=== PATIENT | male | born 1955 | race Caucasian/White ===

== ENCOUNTER 2019-03-25 20:34 | Emergency (ER) | payer OTHER ==
[2019-03-25 20:42] VITALS: BP 197/92; PULSE 78; TEMP 98.1; BMI 26.4
[2019-03-25] MEDS ORDERED: AZITHROMYCIN 250 MG TABLET ONE (21:08)
--- NOTE | 2019-03-25 21:11 | PDOC ---
Documentation entered by Kamala Gandhi SCRIBE, acting as scribe for Goyo Ortega MD. Goyo Ortega MD: This documentation has been prepared by the Oksana almodovar Brenda, SCRIBE, under my direction and personally reviewed by me in its entirety. I confirm that the documentation accurately reflects all work , treatment, procedures, and medical decision making performed by me. History of Present Illness - General Chief Complaint: Respiratory Stated Complaint: PRODUCTIVE COUGH X 1 WEEK,CONGESTION History Source: Patient Exam Limitations: No Limitations - History of Present Illness Initial Comments: 03/25/19 21:03 The patient is a 64 year old male, with a significant PMH of CVA, hypertension, hyperlipidemia who presents to the emergency department with 1 week of cough, congestion and sinus pressure. The patient reports that when the cough first appeared it was productive of yellow phlegm but has since became dry and persistent. Patient also reports tender sinus pressure in the periorbital region and maxillary, accompanied by lethargy. He also endorses a headache across his forehead. He notes taking mucinex, to no relief. The patient denies chest pain, shortness of breath and dizziness. Denies fever, chills, nausea, vomiting, diarrhea and constipation. Denies any other symptoms. . Allergies: NKA Social history: Social alcohol. No reported hx of tobacco use or illicit drug use. 03/25/19 21:07 Assessment and plan: This is a 64-year-old male who comes in complaining of upper respiratory tract symptoms x1 week with initially productive cough now nonproductive cough. Patient also complaining of pain in his maxillary sinuses. On exam patient's lungs were clear however he did have tenderness over his maxillary sinuses bilaterally. Patient started on azithromycin first dose given here for acute sinusitis Prescription sent to patient's pharmacy patient instructed to also get and use a [place] pot Patient discharged home will follow-up with his primary care doctor Past History - Past Medical History Allergies/Adverse Reactions: Allergies Allergy/AdvReac Type Severity Reaction Status Date / Time No Known Allergies Allergy Verified 06/18/15 17:55 Home Medications: Ambulatory Orders Aspirin [ASA -] 81 mg PO DAILY 06/18/15 Lisinopril 10 mg PO DAILY 06/18/15 Metformin HCl [Glucophage] 500 mg PO DAILY 03/25/19 CVA: Yes (2009) HTN: Yes Hypercholesterolemia: Yes - Psycho Social/Smoking Cessation Hx Smoking History: Never smoked Have you smoked in the past 12 months: No Hx Alcohol Use: No Drug/Substance Use Hx: No Substance Use Type: Alcohol Review of Systems - Review of Systems Able to Perform ROS?: Yes Comments:: 03/25/19 21:03 General: No fevers or chills, no weight loss HEENT: No change in vision. No sore throat,. No ear pain CardioVascular: No chest pain or shortness of breath Respiratory: (+)cough (+) Congestion. (+) Sinus pressure. No wheezing. Gastrointestinal: no nausea, vomiting, diarrhea or constipation, No rectal bleeding Genitourinary: No dysuria, hematuria, or frequency Musculoskeletal: No joint or muscle pain or swelling Neurologic: (+) Headache. No vertigo, dizziness or loss of consciousness Psychiatric: nor depression Skin: No rashes or easy bruising Endocrine: no increased thirst or abnormal weight change Allergic: no skin or latex allergy All other systems reviewed and normal *Physical Exam - Vital Signs Last Vital Signs Temp Pulse Resp BP Pulse Ox 98.1 F 78 17 197/92 H 100 03/25/19 20:38 03/25/19 20:38 03/25/19 20:38 03/25/19 20:38 03/25/19 20:38 - Physical Exam 03/25/19 21:12 General: Well-nourished well-developed individual, no acute distress HEENT: Throat: Normal, tonsils normal, no erythema or exudate Neck: Supple, no meningeal signs, no lymphadenopathy Eyes::Pupils equal reactive and round, extraocular motion intact Chest: Nontender to palpation Cardiac: S1-S2 normal, regular rate and rhythm, no murmurs rubs or gallops Respiratory: (+) tenderness to palpation and percussion to maxillary sinuses. Lungs clear to auscultation bilateral Extremities: Warm, dry, no cyanosis, clubbing, or edema Skin: No rashes Neuro: Alert and oriented x3, nonfocal exam, grossly intact, normal gait Psych: Normal mood and affect Discharge - Discharge Information Problems reviewed: Yes Clinical Impression/Diagnosis: Acute sinusitis Qualifiers: Sinusitis location: maxillary Recurrence: non-recurrent Qualified Code(s): J01.00 - Acute maxillary sinusitis, unspecified Condition: Stable Disposition: HOME - Admission No - Follow up/Referral - Patient Discharge Instructions Additional Instructions: Take azithromycin 1 tablet a day for 4 more days this will treat the sinus infection and any bronchitis that you may have as well. Tylenol or Motrin as needed for the pain. Get a [place] pot and use it for the sinuses to help clear out the sinuses. Return to the emergency department immediately with ANY new, persistent or worsening symptoms. Continue any medications as previously prescribed by your physician. You should follow up with your primary doctor as soon as possible regarding today's emergency department visit. . Please make sure your doctor reviews the results of your emergency evaluation. Thank you for coming to the Emergency Department today for your care. It was a pleasure to see you today. Please note that your evaluation is INCOMPLETE until you follow-up with your doctor. - Post Discharge Activity
[2019-03-25] MEDS ORDERED: AZITHROMYCIN 500 MG TABLET PO ONE (21:14)
== END 2019-03-25 21:17 | disposition home or self-care (01) ==
LOC: FER 20:34
DX: J01.00 Acute maxillary sinusitis, unspecified (principal); I10 Essential (primary) hypertension; E78.00 Pure hypercholesterolemia, unspecified; Z86.73 Personal history of transient ischemic attack (TIA), and cerebral infarction without residual deficits
CPT/HCPCS: 99281-25

== ENCOUNTER 2020-05-10 07:19 | Emergency (ER) | payer OTHER ==
[2020-05-10 07:29] VITALS: TEMP 98.8; BMI 27.1
[2020-05-10] MEDS ORDERED: LIDOCAINE 5% TOPICAL PATCH TP ONE (08:35)
[2020-05-10] MEDS ORDERED: ACETAMINOPHEN 325 MG TABLET (FP) PO ONE (08:35)
[2020-05-10] MEDS ORDERED: LIDOCAINE 5% TOPICAL PATCH ONE (08:37)
[2020-05-10] MEDS ORDERED: ACETAMINOPHEN 500 MG TABLET (FP) ONE (08:38)
[2020-05-10 09:00] VITALS: BP 146/76; PULSE 66
[2020-05-10] MEDS ORDERED: LIDOCAINE PATCH REMOVAL MC ONE (22:00)
== END 2020-05-10 09:49 | disposition home or self-care (01) ==
LOC: JER 07:19
DX: M79.81 Nontraumatic hematoma of soft tissue (principal)
CPT/HCPCS: 73523-TC-FY; 99283-25

== ENCOUNTER 2020-09-23 20:11 | Emergency (ER) | payer OTHER ==
[2020-09-23 20:31] VITALS: TEMP 98.6; BMI 26.9
[2020-09-23 22:24] LABS: EOS % 4.4 % (0-4.5); HEMATOCRIT 40.2 % (35.4-49); HEMOGLOBIN 13.8 GM/dL (11.7-16.9); LYMPH % 20.3 % (8-40); MCH 31.5 pg (25.7-33.7); MCHC 34.4 g/dl (32.0-35.9); MEAN CELL VOLUME 91.6 fl (80-96); MEAN PLT VOLUME 9.2 fl (7.5-11.1); MONO % 8.8 % (3.8-10.2); NEUT % 65.5 % (42.8-82.8); PLATELET COUNT 135 10^3/uL (134-434); RBC 4.39 M/mm3 (4.00-5.60); RDW 13.4 % (11.9-15.9); WHITE BLOOD COUNT 7.5 K/mm3 (4.0-10.0)
[2020-09-23 22:43] LABS: CHLORIDE 108 mmol/L (98-107); SODIUM 141 mmol/L (136-145)
[2020-09-23 22:45] LABS: ALBUMIN 3.7 g/dl (3.4-5.0); ANION GAP 6 MMOL/L (8-16); CALCIUM 8.6 mg/dL (8.5-10.1); CO2 27 mmol/L (21-32); GLUCOSE,RANDOM 94 mg/dL (74-106)
[2020-09-23 22:46] LABS: BLOOD UREA NITROGEN 12.8 mg/dL (7-18)
[2020-09-23 22:48] LABS: CREATININE 0.9 mg/dL (0.55-1.3); SGPT/ALT 22 U/L (13-61)
[2020-09-23 22:49] LABS: SGOT/AST 10 U/L (15-37)
[2020-09-23 22:50] LABS: BILIRUBIN,TOTAL 0.2 mg/dL (0.2-1); TOT PROT 7.2 g/dl (6.4-8.2)
[2020-09-23 22:51] LABS: ALK PHOS 79 U/L (45-117)
[2020-09-23] MEDS ORDERED: ACETAMINOPHEN 325 MG TABLET (FP) PO ONE (23:38)
[2020-09-23] MEDS ORDERED: ACETAMINOPHEN 325 MG TABLET (FP) ONE (23:52)
[2020-09-24 01:03] VITALS: BP 142/67; PULSE 68
== END 2020-09-24 01:05 | disposition home or self-care (01) ==
LOC: JER 20:11
DX: J02.9 Acute pharyngitis, unspecified (principal)
CPT/HCPCS: 36415; 71045-TC-FY; 80053; 84484; 85025; 93005; 93010; 99285-25

== ENCOUNTER 2021-09-02 06:45 | Emergency (ER) | payer OTHER ==
[2021-09-02 07:32] VITALS: BP 118/75; PULSE 90; TEMP 98.5; BMI 26.7
[2021-09-02] MEDS ORDERED: SODIUM CHLORIDE 1,000 ML IV ONE (08:16)
[2021-09-02] MEDS ORDERED: ACETAMINOPHEN 1000 MG/100 ML BAG IVPB ONE (08:16)
[2021-09-02] MEDS ORDERED: ACETAMINOPHEN INJECTION 100 ML IVPB ONE (09:05)
[2021-09-02 09:23] LABS: BASO % 0.2 % (0-2.0); EOS % 1.1 % (0-4.5); HEMATOCRIT 40.2 % (35.4-49); HEMOGLOBIN 14.2 GM/dL (11.7-16.9); LYMPH % 11.8 % (8-40); MCH 31.7 pg (25.7-33.7); MCHC 35.2 g/dl (32.0-35.9); MEAN PLT VOLUME 9.4 fl (7.5-11.1); MONO % 11.1 % (3.8-10.2); NEUT % 75.8 % (42.8-82.8); PLATELET COUNT 153 10^3/uL (134-434); RBC 4.47 M/mm3 (4.00-5.60); RDW 13.4 % (11.9-15.9); WHITE BLOOD COUNT 6.9 K/mm3 (4.0-10.0)
[2021-09-02 09:39] LABS: EPI CELLS 0 /uL (0-25.1); HYALINE CASTS 2 /uL (0-3.1); URINE APPEARANCE CLEAR; URINE BACTERIA 1 /uL (0-1359); URINE BILIRUBIN NEGATIVE (NEGATIVE); URINE COLOR YELLOW; URINE GLUCOSE (UA) NEGATIVE (NEGATIVE); URINE KETONE NEGATIVE (NEGATIVE); URINE LEUK ESTERASE NEGATIVE (NEGATIVE); URINE NITRITE NEGATIVE (NEGATIVE); URINE PROTEIN TRACE (NEGATIVE); URINE RBC 24 /uL (0-23.9); URINE UROBILINOGEN 0.2 mg/dL (0.2-1.0); URINE WBC 4 /uL (0-25.8)
[2021-09-02 09:48] LABS: ALBUMIN 3.9 g/dl (3.4-5.0); BLOOD UREA NITROGEN 13.6 mg/dL (7-18); CALCIUM 9.2 mg/dL (8.5-10.1)
[2021-09-02 09:50] LABS: CREATININE 0.9 mg/dL (0.55-1.3)
[2021-09-02 09:52] LABS: BILIRUBIN,TOTAL 0.5 mg/dL (0.2-1); TOT PROT 7.6 g/dl (6.4-8.2)
== END 2021-09-02 11:29 | disposition home or self-care (01) ==
LOC: JER 06:45
PROC: 3E033GC Introduction of Other Therapeutic Substance into Peripheral Vein, Percutaneous Approach (ICD-10-PCS; principal; 2021-09-02)
DX: N40.0 Benign prostatic hyperplasia without lower urinary tract symptoms (principal); R19.7 Diarrhea, unspecified
CPT/HCPCS: 36415; 74177-TC; 80053; 81003; 83690; 85025; 96361; 96374; 99285-25; Q9967

== ENCOUNTER 2022-02-19 15:27 | Emergency (ER) | payer OTHER ==
[2022-02-19 15:45] VITALS: BP 175/84; PULSE 86; RESP 18; TEMP 98.4; BMI 27.4
[2022-02-19] MEDS ORDERED: KETOROLAC TROMETHAMINE 30 MG/1 ML VIAL IM ONE (16:19)
[2022-02-19] MEDS ORDERED: KETOROLAC TROMETHAMINE 30 MG/1 ML VIAL ONE (16:21)
== END 2022-02-19 16:24 | disposition home or self-care (01) ==
LOC: JER 15:27 → JERFT 15:27
PROC: 3E0234Z Introduction of Serum, Toxoid and Vaccine into Muscle, Percutaneous Approach (ICD-10-PCS; principal; 2022-02-19)
DX: M54.50 Low back pain, unspecified (principal)
CPT/HCPCS: 99284-25

== ENCOUNTER 2022-06-02 16:54 | Observation (INO) | payer OTHER ==
[2022-06-02] MEDS ORDERED: ACETAMINOPHEN 1000 MG/100 ML BAG IVPB ONE (18:01)
[2022-06-02] MEDS ORDERED: FAMOTIDINE 20 MG/50 ML IVPB 20 MG/50 ML MG IVPB ONE ×2 (18:03→18:11)
[2022-06-02] MEDS ORDERED: MAG HYDROX/AL HYDROX/SIMETH -MYLANTA- ORAL SUSPENSION PO ONE (18:03)
[2022-06-02] MEDS ORDERED: LACTATED RINGERS SOLUTION 1000 ML INFUS.BAG IV ONE (18:03)
[2022-06-02] MEDS ORDERED: METOCLOPRAMIDE HCL INJECTION 10 MG/2 ML VIAL IVPUSH ONE (18:05)
[2022-06-02] MEDS ORDERED: METOCLOPRAMIDE HCL INJECTION 10 MG/2 ML VIAL ONE (18:10)
[2022-06-02] MEDS ORDERED: MAG HYDROX/AL HYDROX/SIMETH 30 ML UNIT-DOSE CUP ONE (18:11)
[2022-06-02] MEDS ORDERED: ACETAMINOPHEN INJECTION 100 ML IVPB ONE (18:11)
[2022-06-02 19:31] LABS: BASO % 0.3 % (0-2.0); EOS % 2.2 % (0-4.5); HEMATOCRIT 42.3 % (35.4-49); HEMOGLOBIN 14.8 GM/dL (11.7-16.9); LYMPH % 20.1 % (8-40); MCH 31.1 pg (25.7-33.7); MCHC 34.9 g/dl (32.0-35.9); MEAN CELL VOLUME 89.2 fl (80-96); MEAN PLT VOLUME 9.2 fl (7.5-11.1); MONO % 7.9 % (3.8-10.2); NEUT % 69.5 % (42.8-82.8); PLATELET COUNT 193 10^3/uL (134-434); RBC 4.74 M/mm3 (4.00-5.60); RDW 13.2 % (11.9-15.9); WHITE BLOOD COUNT 7.2 K/mm3 (4.0-10.0)
[2022-06-02 19:39] LABS: INR 0.99 (0.83-1.09); PROTHROMBIN TIME (PATIENT) 11.5 SEC (9.7-13.0)
[2022-06-02 19:41] LABS: ACTIVATED PTT 30.3 SECONDS (25.2-36.5)
[2022-06-02 19:45] LABS: ALBUMIN 4.5 g/dl (3.4-5.0); BLOOD UREA NITROGEN 22.9 mg/dL (7-18); CALCIUM 9.6 mg/dL (8.5-10.1); MAGNESIUM 2.4 mg/dL (1.8-2.4)
[2022-06-02 19:49] LABS: BILIRUBIN,TOTAL 0.3 mg/dL (0.2-1); TOT PROT 8.7 g/dl (6.4-8.2)
[2022-06-02 19:50] LABS: N-TERMINAL BNP 44.6 pg/ml (5-125)
[2022-06-02] MEDS ORDERED: ASPIRIN 81 MG CHEWABLE TABLETS PO ONE (21:34)
[2022-06-02] MEDS ORDERED: ASPIRIN 81 MG CHEWABLE TABLETS ONE (21:37)
[2022-06-03 00:23] VITALS: BMI 26.0
[2022-06-03] MEDS: ATORVASTATIN CA 10 MG TABLET (FP) PO SCH ×2 (01:24→22:06)
[2022-06-03] MEDS: INSULIN SLIDING SCALE (NOVOLOG) 1 VIAL SQ SCH ×4 (06:54→22:11)
[2022-06-03 09:15] LABS: BASO % 0.3 % (0-2.0); EOS % 2.4 % (0-4.5); HEMATOCRIT 38.5 % (35.4-49); HEMOGLOBIN 13.8 GM/dL (11.7-16.9); LYMPH % 20.8 % (8-40); MCH 31.7 pg (25.7-33.7); MCHC 35.8 g/dl (32.0-35.9); MEAN CELL VOLUME 88.5 fl (80-96); MONO % 7.4 % (3.8-10.2); NEUT % 69.1 % (42.8-82.8); PLATELET COUNT 173 10^3/uL (134-434); RBC 4.35 M/mm3 (4.00-5.60); RDW 13.3 % (11.9-15.9); WHITE BLOOD COUNT 4.9 K/mm3 (4.0-10.0)
[2022-06-03 09:38] LABS: ALBUMIN 3.9 g/dl (3.4-5.0); BLOOD UREA NITROGEN 18.6 mg/dL (7-18); CALCIUM 8.9 mg/dL (8.5-10.1); MAGNESIUM 2.2 mg/dL (1.8-2.4)
[2022-06-03 09:41] LABS: CREATININE 0.9 mg/dL (0.55-1.3); PHOSPHOROUS 3.3 mg/dL (2.5-4.9)
[2022-06-03 09:44] LABS: BILIRUBIN,TOTAL 0.4 mg/dL (0.2-1); TOT PROT 7.6 g/dl (6.4-8.2)
[2022-06-03] MEDS: ENOXAPARIN NA (PORCINE) 40 MG/0.4 ML DISP.SYRIN SQ SCH (10:18)
[2022-06-03] MEDS: ASPIRIN COATED 81 MG TABLET.EC PO SCH (10:18)
[2022-06-03] MEDS ORDERED: LISINOPRIL 20 MG TABLET PO SCH (18:15)
[2022-06-03] MEDS ORDERED: amLODIPine BESYLATE 5 MG TABLET (FP) PO SCH (22:00)
[2022-06-04] MEDS: INSULIN SLIDING SCALE (NOVOLOG) 1 VIAL SQ SCH ×2 (07:30→11:17)
[2022-06-04] MEDS: ENOXAPARIN NA (PORCINE) 40 MG/0.4 ML DISP.SYRIN SQ SCH (09:33)
[2022-06-04] MEDS: ASPIRIN COATED 81 MG TABLET.EC PO SCH (09:33)
[2022-06-04 09:54] LABS: HEMATOCRIT 38.5 % (35.4-49); HEMOGLOBIN 13.5 GM/dL (11.7-16.9); MCH 31.3 pg (25.7-33.7); MCHC 35.2 g/dl (32.0-35.9); MEAN CELL VOLUME 89.1 fl (80-96); MEAN PLT VOLUME 9.7 fl (7.5-11.1); PLATELET COUNT 164 10^3/uL (134-434); RBC 4.32 M/mm3 (4.00-5.60); RDW 13.3 % (11.9-15.9); WHITE BLOOD COUNT 5.5 K/mm3 (4.0-10.0)
[2022-06-04 09:56] LABS: CALCIUM 8.7 mg/dL (8.5-10.1)
[2022-06-04 09:58] LABS: BLOOD UREA NITROGEN 29.5 mg/dL (7-18)
[2022-06-04 10:00] LABS: CREATININE 1.1 mg/dL (0.55-1.3)
[2022-06-04 10:33] VITALS: RESP 20
[2022-06-04] MEDS ORDERED: amLODIPine BESYLATE 2.5 MG TABLET (FP) PO SCH (11:15)
[2022-06-04 14:27] VITALS: BP 110/74; PULSE 62; TEMP 98.1
== END 2022-06-04 17:08 | disposition home or self-care (01) ==
LOC: JER 16:54 → JERBED 22:02 → J4W 23:41 → INTOOBSV 23:53 → OBSVTOIN 23:53
PROVIDERS: ADMIT Internal Medicine; ATTEND Internal Medicine
PROC: 3E033NZ Introduction of Analgesics, Hypnotics, Sedatives into Peripheral Vein, Percutaneous Approach (ICD-10-PCS; principal; 2022-06-02)
PROC: 3E023GC Introduction of Other Therapeutic Substance into Muscle, Percutaneous Approach (ICD-10-PCS; 2022-06-02)
PROC: 3E033GC Introduction of Other Therapeutic Substance into Peripheral Vein, Percutaneous Approach (ICD-10-PCS; 2022-06-02)
PROC: 3E0337Z Introduction of Electrolytic and Water Balance Substance into Peripheral Vein, Percutaneous Approach (ICD-10-PCS; 2022-06-02)
DX: I16.0 Hypertensive urgency (principal); E11.9 Type 2 diabetes mellitus without complications; R42 Dizziness and giddiness; R53.1 Weakness; Z86.73 Personal history of transient ischemic attack (TIA), and cerebral infarction without residual deficits
CPT/HCPCS: 0241U-QW; 36415; 70450-TC; 71045-TC-FY; 80048; 80053; 80061; 82962; 83036; 83690; 83735; 83880; 84100; 84443; 84484; 85025; 85027; 85610; 85730; 93005; 93010; 93880-TC; 96361; 96365; 96372; 96375; 97116-GP; 97162-GP; 99285-25; G0378